=== PATIENT | female | born 1980 | race American Indian/Alaskan Native ===

== ENCOUNTER 2020-05-01 02:18 | Inpatient (IN) | payer OTHER ==
[2020-05-01 03:15] LABS: Basophils % (Auto) 0.1 % (0.0-1.8); Hematocrit 48.7 % (30.3-42.9); Hemoglobin 15.6 gm/dl (10.1-14.3); Lymphocytes % (Auto) 7.2 % (13.4-35.0); Mean Corpuscular HGB Conc 32 % (30-34); Mean Corpuscular Volume 86 fl (79-97); Monocytes # (Auto) 0.4 K/mm3 (0.0-0.8); Platelet Count 308 K/mm3 (140-440); Red Blood Count 5.63 M/mm3 (3.65-5.03); Red Cell Distribution Width 14.6 % (13.2-15.2)
[2020-05-01 03:41] LABS: Alanine Aminotransferase 11 units/L (7-56); Albumin 4.7 g/dL (3.9-5); Blood Urea Nitrogen 11 mg/dL (7-17); Calcium 10.2 mg/dL (8.4-10.2); Hemolysis Index 5
[2020-05-01 03:50] LABS: BUN/Creatinine Ratio 22
[2020-05-01] MEDS ORDERED: ONDANSETRON 4 MG/2 ML INJ IV ONE (04:02)
[2020-05-01] MEDS ORDERED: SODIUM CHLORIDE 0.9% 1000 ML 1,000 ML IV ONE ×2 (04:02→05:30)
[2020-05-01] MEDS ORDERED: HYDROmorphone 1 MG/1 ML INJ IV ONE ×2 (04:02→12:00)
--- NOTE | 2020-05-01 04:03 | Emergency Department Report ---
ED Abdominal Pain HPI - General Chief Complaint: Abdominal Pain Stated Complaint: SEVERE ABD PAIN Time Seen by Provider: 05/01/20 04:00 Source: patient Mode of arrival: Ambulatory Limitations: No Limitations - History of Present Illness Initial Comments: Patient is a 39-year-old female that presents emergency room with complaints of abdominal pain. Patient states she is having periumbilical abdominal pain that is a 10 out of 10. Patient states it started 2 days ago. Patient states the pain is worsening. Patient states the pain is unbearable. Patient states the pain is better with rest and worse with palpation and movement. Patient states she had this pain similar when checked her hernia was entrapped and it needed a hernia repair. Patient denies chest pain or shortness of breath. Patient denies nausea vomiting. Patient denies dysuria. Patient denies recent travel. Patient denies recent international travel. Patient denies exposure to the novel coronavirus. Patient denies sick contacts. Patient denies fever and chills. Patient denies cough. Patient denies diarrhea. Patient denies coming in contact with anybody with symptoms of the novel coronavirus. MD Complaint: abdominal pain -: Sudden Location: periumbilical Radiation: none Migration to: no migration Severity: severe Severity scale (0 -10): 10 Quality: stabbing Consistency: constant Improves With: rest Worsens With: movement Associated Symptoms: denies: nausea, vomiting, diarrhea - Related Data Allergies Allergy/AdvReac Type Severity Reaction Status Date / Time No Known Allergies Allergy Unverified 05/01/20 02:29 ED Review of Systems ROS: Stated complaint: SEVERE ABD PAIN Other details as noted in HPI Constitutional: denies: chills, fever Eyes: denies: eye pain, eye discharge, vision change ENT: denies: ear pain, throat pain Respiratory: denies: cough, shortness of breath, wheezing Cardiovascular: denies: chest pain, palpitations Endocrine: no symptoms reported Gastrointestinal: abdominal pain. denies: nausea, diarrhea Genitourinary: denies: urgency, dysuria, discharge Musculoskeletal: denies: back pain, joint swelling, arthralgia Skin: denies: rash, lesions Neurological: denies: headache, weakness, paresthesias Psychiatric: denies: anxiety, depression Hematological/Lymphatic: denies: easy bleeding, easy bruising ED Past Medical Hx - Past Medical History Previous Medical History?: Yes Hx Hypertension: Yes Hx Asthma: Yes - Surgical History Past Surgical History?: Yes Hx Appendectomy: Yes Additional Surgical History: Hernia repair - Family History Family history: no significant - Social History Smoking Status: Former Smoker Substance Use Type: Marijuana ED Physical Exam - General Limitations: No Limitations General appearance: alert, in no apparent distress, obese - Head Head exam: Present: atraumatic, normocephalic - Eye Eye exam: Present: normal appearance - ENT ENT exam: Present: mucous membranes moist - Neck Neck exam: Present: normal inspection - Respiratory Respiratory exam: Present: normal lung sounds bilaterally. Absent: respiratory distress - Cardiovascular Cardiovascular Exam: Present: regular rate, normal rhythm. Absent: systolic murmur, diastolic murmur, rubs, gallop - GI/Abdominal GI/Abdominal exam: Present: soft, distended, tenderness (Periumbilical tenderness.), normal bowel sounds - Extremities Exam Extremities exam: Present: normal inspection - Back Exam Back exam: Present: normal inspection - Neurological Exam Neurological exam: Present: alert, oriented X3 - Psychiatric Psychiatric exam: Present: normal affect, normal mood - Skin Skin exam: Present: warm, dry, intact, normal color. Absent: rash ED Course Vital Signs 05/01/20 05/01/20 05/01/20 02:25 04:10 04:11 Temperature 97.9 F 98.9 F Pulse Rate 76 67 Respiratory 18 12 18 Rate Blood Pressure 174/94 Blood Pressure 139/85 [Left] O2 Sat by Pulse 97 99 Oximetry 05/01/20 05/01/20 05/01/20 04:30 04:41 05:16 Temperature Pulse Rate 58 L 60 Respiratory 14 18 14 Rate Blood Pressure 118/72 142/95 Blood Pressure [Left] O2 Sat by Pulse 98 97 Oximetry - Reevaluation(s) Reevaluation #1: Patient states her pain is much better. Patient has not had any active vomiting in the ER. I discussed all results with patient. I discussed plan of care with patient. Patient agrees with plan of care and admission. Patient to be admitted to the hospitalist service. 05/01/20 05:26 - Consultations Consultation #1: General surgery consulted. 05/01/20 05:26 Consultation #2: Hospitalist consulted for admission. Hospitalist to admit patient. 05/01/20 05:26 ED Medical Decision Making - Lab Data Result diagrams: 05/01/20 02:41 05/01/20 02:41 - Radiology Data Radiology results: report reviewed CT abdomen pelvis w con INDICATION / CLINICAL INFORMATION: Pt complains of periumbilical abdominal pain x 2 days. TECHNIQUE: Axial CT imaging of abdomen and pelvis was obtained with IV contrast. Coronal and sagittal reformatted imaging obtained and reviewed. All CT scans at this location are performed using CT dose reduction for ALARA by means of automated exposure control. COMPARISON: 07/08/2007 CT abdomen/pelvis FINDINGS: CT abdomen with contrast demonstrates normal appearance of the liver, spleen, pancreas, kidneys, and adrenal glands. Gallbladder is unremarkable. No biliary dilatation. Evidence of prior abdominal wall hernia repair. CT pelvis with contrast demonstrates numerous dilated fluid-filled small bowel loops throughout the abdomen and pelvis. The distal small bowel is collapsed. The appearance is most consistent with a small bowel obstruction. Small amount of fluid is seen scattered throughout the pelvis and surrounding the liver. No free air is noted. No additional abnormal findings a re seen within the pelvis. The appendix has been surgically removed. Visualized lung bases are clear. No significant acute skeletal abnormality. Degenerative disc disease at L5-S1 is present. IMPRESSION: 1. Dilated fluid-filled small bowel is present throughout the abdomen and pelvis. Distal small bowel is collapsed. The appearance is consistent with small bowel obstruction. Small amount of free fluid is seen throughout the abdomen and pelvis but no free air. - Medical Decision Making Patient is a 39-year-old female that presents emergency room with severe abdominal pain. Patient given Zofran and Dilaudid and her abdominal pain responded well. Patient also given fluids in the ER. Patient has CT scan of the abdomen and it showed a small bowel obstruction. General surgery was consulted. Patient is not actively vomiting and does not require an NG tube. Patient will placed n.p.o. and given fluids. Patient given antibiotics for UTI. Patient's labs are essentially unremarkable except for UTI, elevated WBC. Patient admitted to the hospitalist service. - Differential Diagnosis SBO, obstruction, abdominal pain, UTI. Critical Care Time: Yes Critical care time in (mins) excluding proc time.: 35 Critical care attestation.: If time is entered above; I have spent that time in minutes in the direct care of this critically ill patient, excluding procedure time. Critical Care Time: 35 MINUTES ED Disposition Clinical Impression: SBO (small bowel obstruction) Abdominal pain Qualifiers: Abdominal location: periumbilical Qualified Code(s): R10.33 - Periumbilical pain UTI (urinary tract infection) Qualifiers: Urinary tract infection type: acute cystitis Hematuria presence: with hematuria Qualified Code(s): N30.01 - Acute cystitis with hematuria Disposition: OP ADMIT IP TO THIS HOSP Is pt being admited?: Yes Does the pt Need Aspirin: No Condition: Critical Time of Disposition: 05:27
[2020-05-01 04:44] LABS: Bilirubin,Urine NEG (Negative); Blood,Urine SM (Negative); Color,Urine Yellow (Yellow); Mucus,Urine 3+ /HPF; Urobilinogen,Urine < 2.0 mg/dL (<2.0)
--- NOTE | 2020-05-01 05:15 | Cat Scan Report ---
CT abdomen pelvis w con INDICATION / CLINICAL INFORMATION: Pt complains of periumbilical abdominal pain x 2 days. TECHNIQUE: Axial CT imaging of abdomen and pelvis was obtained with IV contrast. Coronal and sagittal reformatte d imaging obtained and reviewed. All CT scans at this location are performed using CT dose reduction for ALARA by means of automated exposure control. COMPARISON: 07/08/2007 CT abdomen/pelvis FINDINGS: CT abdomen with contrast demonstrates normal appearance of the liver, spleen, pancreas, kidneys, and adrenal glands. Gallbladder is unremarkable. No biliary dilatation. Evidence of prior abdominal wall hernia repair. CT pelvis with contrast demonstrates numerous dilated fluid-filled small bowel loops throughout the a bdomen and pelvis. The distal small bowel is collapsed. The appearance is most consistent with a smal l bowel obstruction. Small amount of fluid is seen scattered throughout the pelvis and surrounding th e liver. No free air is noted. No additional abnormal findings are seen within the pelvis. The append ix has been surgically removed. Visualized lung bases are clear. No significant acute skeletal abnormality. Degenerative disc disease at L5-S1 is present. IMPRESSION: 1. Dilated fluid-filled small bowel is present throughout the abdomen and pelvis. Distal small bowel is collapsed. The appearance is consistent with small bowel obstruction. Small amount of free fluid i s seen throughout the abdomen and pelvis but no free air. Signer Name: Leonor Vazquez MD Signed: 05/01/2020 5:10 AM Workstation Name: [id number]
[2020-05-01] MEDS ORDERED: CEFEPIME/NS 2 GM/100 ML 2 GM/100 ML BAG IV ONE (05:28)
--- NOTE | 2020-05-01 10:26 | XRay Report ---
ABDOMINAL SERIES WITH CHEST 1 VIEW HISTORY: Small bowel obstruction COMPARISON: CT abdomen and pelvis performed earlier today IMPRESSION: Single view of the chest is normal. Supine and upright views of the abdomen demonstrates scattered small air-fluid levels but no convincing dilated bowel on abdominal series. No free air is detected. Signer Name: Randall Smith Jr, MD Signed: 05/01/2020 10:22 AM Workstation Name: [id number]
[2020-05-01] MEDS: PANTOPRAZOLE 40 MG INJ IV SCH ×2 (11:18→22:18)
[2020-05-01] MEDS: D5W/0.9% NACL 1,000 ML IV SCH ×2 (11:19→18:20)
[2020-05-01] MEDS ORDERED: LIDOCAINE 2% UROJECT 10 ML JELLY UR ONE (12:37)
--- NOTE | 2020-05-01 12:37 | Consultation ---
History of Present Illness Consult date: 05/01/20 Reason for consult: abdominal pain Chief complaint: Abdominal pain - History of present illness History of present illness: 39-year-old female with a past medical history of obesity, surgical history of e mergent incarcerated ventral hernia repair at [facility] 6 years ago. She presents to the emergency room with acute onset periumbilical and epigastric abdominal pain that started yesterday. There were no inciting factors. The patient states that prior to the pain starting she had gone to the gym and performed a workout. In the parking lot of the gym, she had an episode of emesis. She states that the pain is very sharp and severe when it comes. It is localized to the periumbilical area and radiates to the upper abdomen. She states that the pain medications given to her in the emergency room did help settle her pain. She has not had any fevers or chills. No history of ulcer disease. She has had nausea and vomiting while trying to drink p.o. contrast this morning. Past History Past Medical History: other (Obesity) Past Surgical History: Other (Incarcerated ventral hernia repair) Social history: smoking Family history: no significant family history Medications and Allergies Allergies Allergy/AdvReac Type Severity Reaction Status Date / Time No Known Allergies Allergy Unverified 05/01/20 02:29 Active Meds: Active Medications Dextrose/Sodium Chloride (D5ns) 1,000 mls @ 125 mls/hr IV DIRECT [facility] Last Admin: 05/01/20 11:19 Dose: 125 mls/hr Documented by: Pantoprazole Sodium (Protonix) 40 mg IV BID [facility] Last Admin: 05/01/20 11:18 Dose: 40 mg Documented by: Review of Systems All systems: negative (10 point ROS performed and negative except for that listed in HPI) Exam Vital Signs Temp Pulse Resp BP Pulse Ox 97.9 F 76 18 174/94 97 05/01/20 02:25 05/01/20 02:25 05/01/20 02:25 05/01/20 02:25 05/01/20 02:25 Narrative exam: Gen.: Awake, alert, oriented 3. Tearful, moderate distress due to pain ENT: No scleral icterus or conjunctival pallor CV: S1, S2 present Respiratory: No audible wheezes Abdomen: Soft, nondistended, tender to palpation in the epigastrium. Well- healed surgical scar. No rebound, rigidity, guarding Extremities: No clubbing, cyanosis, edema Results - Labs 05/01/20 02:41 05/01/20 02:41 Abnormal lab results 05/01/20 05/01/20 05/01/20 Range/Units 02:41 02:41 Unknown WBC 13.8 H (4.5-11.0) K/mm3 RBC 5.63 H (3.65-5.03) M/mm3 Hgb 15.6 H (10.1-14.3) gm/dl Hct 48.7 H (30.3-42.9) % Lymph % (Auto) 7.2 L (13.4-35.0) % Lymph # 1.0 L (1.2-5.4) K/mm3 Seg Neutrophils % 89.7 H (40.0-70.0) % Seg Neutrophils # 12.4 H (1.8-7.7) K/mm3 Carbon Dioxide 21 L (22-30) mmol/L Creatinine 0.5 L (0.6-1.2) mg/dL Glucose 133 H (65-100) mg/dL Total Protein 8.6 H (6.3-8.2) g/dL Ur Specific [place] 1.033 H (1.003-1.030) Urine WBC (Auto) 14.0 H (0.0-6.0) /HPF U Epithel Cells (Auto) 31.0 H (0-13.0) /HPF Diabetes panel 05/01/20 Range/Units 02:41 Sodium 139 (137-145) mmol/L Potassium 3.9 (3.6-5.0) mmol/L Chloride 99.0 (98-107) mmol/L Carbon Dioxide 21 L (22-30) mmol/L BUN 11 (7-17) mg/dL Creatinine 0.5 L (0.6-1.2) mg/dL Glucose 133 H (65-100) mg/dL Calcium 10.2 (8.4-10.2) mg/dL AST 22 (5-40) units/L ALT 11 (7-56) units/L Alkaline Phosphatase 82 (35-129) units/L Total Protein 8.6 H (6.3-8.2) g/dL Albumin 4.7 (3.9-5) g/dL Calcium panel 05/01/20 Range/Units 02:41 Calcium 10.2 (8.4-10.2) mg/dL Albumin 4.7 (3.9-5) g/dL Pituitary panel 05/01/20 Range/Units 02:41 Sodium 139 (137-145) mmol/L Potassium 3.9 (3.6-5.0) mmol/L Chloride 99.0 (98-107) mmol/L Carbon Dioxide 21 L (22-30) mmol/L BUN 11 (7-17) mg/dL Creatinine 0.5 L (0.6-1.2) mg/dL Glucose 133 H (65-100) mg/dL Calcium 10.2 (8.4-10.2) mg/dL Adrenal panel 05/01/20 Range/Units 02:41 Sodium 139 (137-145) mmol/L Potassium 3.9 (3.6-5.0) mmol/L Chloride 99.0 (98-107) mmol/L Carbon Dioxide 21 L (22-30) mmol/L BUN 11 (7-17) mg/dL Creatinine 0.5 L (0.6-1.2) mg/dL Glucose 133 H (65-100) mg/dL Calcium 10.2 (8.4-10.2) mg/dL Total Bilirubin 0.50 (0.1-1.2) mg/dL AST 22 (5-40) units/L ALT 11 (7-56) units/L Alkaline Phosphatase 82 (35-129) units/L Total Protein 8.6 H (6.3-8.2) g/dL Albumin 4.7 (3.9-5) g/dL - Imaging CT scan - abdomen: report reviewed, image reviewed CT scan - pelvis: report reviewed, image reviewed Assessment and Plan 39-year-old female with acute onset abdominal pain, likely duodenal ulcer with contained perforation CT scan abdomen and pelvis images and report reviewed with Dr. Smith. Plan: 1. Strict n.p.o. 2. IVF 3. NGT to be inserted and kept to LIWS 4. IV abx 5. PPI BID 6. prn pain control 7. will repeat CT A/P with oral contrast to evaluate if perforation is sealed or there is extravasation of oral contrast. Further recommendations pending repeat CT scan The plan was discussed in detail with the patient. Thank you for this consultation. Please call with any questions or concerns. Evaluation and treatment of this patient was during the time of the national and state emergency arising from COVID19 coronavirus pandemic. Treatment and procedures performed meet the current and available best practice and guidelines for patient during the COVID pandemic.
--- NOTE | 2020-05-01 12:37 | History and Physical Report ---
History of Present Illness Date of examination: 05/01/20 Date of admission: 05/01/20 05:28 Chief complaint: abd pain, n/v History of present illness: Patient is a 39-year-old female that presents emergency room with complaints of abdominal pain. Patient states she is having periumbilical abdominal pain that is a 10 out of 10. Patient states it started 2 days ago. Patient states the pain is worsening. Patient states the pain is better with rest and worse with palpation and movement. Patient states she had this pain similar when checked her hernia was entrapped and it needed a hernia repair. Patient reports previous surgeries with inguinal hernia repair and appendectomy. Patient denies chest pain or shortness of breath. Patient denies nausea vomiting. Patient denies dysuria. Patient denies recent travel. Patient denies recent international travel. Patient denies exposure to the novel coronavirus. Patient denies sick contacts. Patient denies fever and chills. Patient denies cough. Patient denies diarrhea. Patient denies coming in contact with anybody with symptoms of the novel coronavirus. Past History Past Surgical History: appendectomy, Other (Inguinal hernia repair) Social history: no significant social history Family history: no significant family history Medications and Allergies Allergies Allergy/AdvReac Type Severity Reaction Status Date / Time No Known Allergies Allergy Unverified 05/01/20 02:29 Active Meds: Active Medications Dextrose/Sodium Chloride (D5ns) 1,000 mls @ 125 mls/hr IV DIRECT [facility] Last Admin: 05/01/20 11:19 Dose: 125 mls/hr Documented by: Pantoprazole Sodium (Protonix) 40 mg IV BID [facility] Last Admin: 05/01/20 11:18 Dose: 40 mg Documented by: Review of Systems All systems: negative Exam - Constitutional Vitals: Temp Pulse Resp BP Pulse Ox 98.9 F 63 14 151/104 93 05/01/20 04:10 05/01/20 07:20 05/01/20 07:20 05/01/20 07:30 05/01/20 07:30 General appearance: Present: no acute distress, well-nourished - EENT Eyes: Present: PERRL ENT: hearing intact, clear oral mucosa - Neck Neck: Present: supple, normal ROM - Respiratory Respiratory effort: normal Respiratory: bilateral: CTA - Cardiovascular Heart Sounds: Present: S1 & S2. Absent: rub, click - Extremities Extremities: pulses symmetrical, No edema Peripheral Pulses: within normal limits - Abdominal General gastrointestinal: Present: soft, non-tender, non-distended, normal bowel sounds Female genitourinary: Present: normal - Integumentary Integumentary: Present: clear, warm, dry - Musculoskeletal Musculoskeletal: gait normal, strength equal bilaterally - Psychiatric Psychiatric: appropriate mood/affect, intact judgment & insight - Neurologic Neurologic: CNII-XII intact, moves all extremities Results - Labs CBC & Chem 7: 05/01/20 02:41 05/01/20 02:41 Labs: Laboratory Last Values WBC 13.8 K/mm3 (4.5-11.0) H 05/01/20 02:41 RBC 5.63 M/mm3 (3.65-5.03) H 05/01/20 02:41 Hgb 15.6 gm/dl (10.1-14.3) H 05/01/20 02:41 Hct 48.7 % (30.3-42.9) H 05/01/20 02:41 MCV 86 fl (79-97) 05/01/20 02:41 MCH 28 pg (28-32) 05/01/20 02:41 MCHC 32 % (30-34) 05/01/20 02:41 RDW 14.6 % (13.2-15.2) 05/01/20 02:41 Plt Count 308 K/mm3 (140-440) 05/01/20 02:41 Lymph % (Auto) 7.2 % (13.4-35.0) L 05/01/20 02:41 [place] % (Auto) 3.0 % (0.0-7.3) 05/01/20 02:41 Eos % (Auto) 0.0 % (0.0-4.3) 05/01/20 02:41 Baso % (Auto) 0.1 % (0.0-1.8) 05/01/20 02:41 Lymph # 1.0 K/mm3 (1.2-5.4) L 05/01/20 02:41 [place] # 0.4 K/mm3 (0.0-0.8) 05/01/20 02:41 Eos # 0.0 K/mm3 (0.0-0.4) 05/01/20 02:41 Baso # 0.0 K/mm3 (0.0-0.1) 05/01/20 02:41 Seg Neutrophils % 89.7 % (40.0-70.0) H 05/01/20 02:41 Seg Neutrophils # 12.4 K/mm3 (1.8-7.7) H 05/01/20 02:41 Sodium 139 mmol/L (137-145) 05/01/20 02:41 Potassium 3.9 mmol/L (3.6-5.0) 05/01/20 02:41 Chloride 99.0 mmol/L (98-107) 05/01/20 02:41 Carbon Dioxide 21 mmol/L (22-30) L 05/01/20 02:41 Anion Gap 23 mmol/L 05/01/20 02:41 BUN 11 mg/dL (7-17) 05/01/20 02:41 Creatinine 0.5 mg/dL (0.6-1.2) L 05/01/20 02:41 Estimated GFR > 60 ml/min 05/01/20 02:41 BUN/Creatinine Ratio 22 % 05/01/20 02:41 Glucose 133 mg/dL (65-100) H 05/01/20 02:41 Calcium 10.2 mg/dL (8.4-10.2) 05/01/20 02:41 Total Bilirubin 0.50 mg/dL (0.1-1.2) 05/01/20 02:41 AST 22 units/L (5-40) 05/01/20 02:41 ALT 11 units/L (7-56) 05/01/20 02:41 Alkaline Phosphatase 82 units/L (35-129) 05/01/20 02:41 Total Protein 8.6 g/dL (6.3-8.2) H 05/01/20 02:41 Albumin 4.7 g/dL (3.9-5) 05/01/20 02:41 Albumin/Globulin Ratio 1.2 % 05/01/20 02:41 HCG, Qual Negative (Negative) 05/01/20 02:41 Urine Color Yellow (Yellow) 05/01/20 Unknown Urine Turbidity Slightly-cloudy (Clear) 05/01/20 Unknown Urine pH 6.0 (5.0-7.0) 05/01/20 Unknown Ur Specific [place] 1.033 (1.003-1.030) H 05/01/20 Unknown Urine Protein 100 mg/dl mg/dL (Negative) 05/01/20 Unknown Urine Glucose (UA) Neg mg/dL (Negative) 05/01/20 Unknown Urine Ketones 80 mg/dL (Negative) 05/01/20 Unknown Urine Blood Sm (Negative) 05/01/20 Unknown Urine Nitrite Neg (Negative) 05/01/20 Unknown Urine Bilirubin Neg (Negative) 05/01/20 Unknown Urine Urobilinogen < 2.0 mg/dL (<2.0) 05/01/20 Unknown Ur Leukocyte Esterase Sm (Negative) 05/01/20 Unknown Urine WBC (Auto) 14.0 /HPF (0.0-6.0) H 05/01/20 Unknown Urine RBC (Auto) 52.0 /HPF (0.0-6.0) 05/01/20 Unknown U Epithel Cells (Auto) 31.0 /HPF (0-13.0) H 05/01/20 Unknown Urine Mucus 3+ /HPF 05/01/20 Unknown Ybarra/IV: Voiding Method Toilet IV Catheter Type [Right INT / Saline Lock Forearm] Assessment and Plan Assessment and plan: Small bowel obstruction. Surgery consultation pending. CT scan of the abdomen revealed SBO with dilated fluid-filled small bowel present throughout the abdomen and pelvis. Distal small bowel is collapsed. Etiology likely secondary to previous abdominal surgeries with LAW. Continue supportive care with IV fluid hydration. Consider NG tube placement to low intermittent suction if vomiting recurs. Patient currently refusing. Hypertension. Patient reports no history of hypertension. Etiology may be secondary to pain. Adequate pain control. Hydralazine PRN. History of inguinal hernia repair. History of appendectomy.
[2020-05-01] MEDS ORDERED: hydrALAZINE 20 MG/1 ML INJ IV PRN (12:39)
[2020-05-01] MEDS ORDERED: LIDOCAINE VISCOUS 2% 15 ML ORAL LIQD MM NR (12:45)
--- NOTE | 2020-05-01 14:48 | Cat Scan Report ---
CT ABDOMEN AND PELVIS WITHOUT CONTRAST HISTORY: perforated duodenal ulcer. COMPARISON: Earlier today at 0044 hours TECHNIQUE: Helical CT images of the abdomen and pelvis were obtained without administration of intrav enous contrast. Sagittal and coronal reformatted images were reviewed. All CT scans at this location are performed using CT dose reduction for ALARA by means of automated exposure control. FINDINGS: Abdomen/pelvis: Oral contrast is present in the stomach and most of the small bowel. There is no con vincing extravasation of oral contrast into the suspected duodenal ulcer. There is persistent small b owel gas in the retroperitoneum and mild free fluid in the abdomen. No free air is appreciated. No convincing small bowel obstruction pattern on follow-up CT. The liver, biliary system, pancreas, spleen, kidneys, adrenal glands, aorta, and pelvic viscera remai n unremarkable otherwise. Lungs/bones: No significant abnormality. IMPRESSION: Duodenal ulcer is still suspected but no extravasation of oral contrast is demonstrated on CT. See ab echevarria. Signer Name: Randall Smith Jr, MD Signed: 05/01/2020 2:44 PM Workstation Name: [id number]
[2020-05-01] MEDS ORDERED: PHENOL 1.4% 177 ML BOTTLE MM PRN (15:08)
[2020-05-01] MEDS: ONDANSETRON 4 MG/2 ML INJ IV PRN (15:08)
[2020-05-01] MEDS: HYDROmorphone 1 MG/1 ML INJ IV PRN ×2 (15:17→20:01)
--- NOTE | 2020-05-01 15:21 | Event Note ---
Date: 05/01/20 Patient reassessed multiple times after initial consultation. She was able to tolerate the oral contrast after IV pain medication. She was sitting in bed comfortably without any abdominal pain. Patient sent for CT scan abdomen and pelvis with oral contrast to reevaluate the area of the duodenum. NG tube placement held until CT scan was completed. Spoke with patient's mother Michelle at her request, in the presence of the patient and explained the Ct scan findings and plan. Patient seen after she returned from CAT scan. Patient without any acute complaints. CT scan images and report reviewed. No evidence of oral contrast extravasation, area of the duodenal ulcer once again seen. Oral contrast present in the distal small bowel without evidence of obstruction. A 16 [place] NG tube was placed through the patient's right nare on the first attempt. She tolerated this but did have some retching. NG tube placed to suction with clear fluid mixed with some pink gastric fluid suctioned out, approximately 500 cc. The tube was secured to the nose with silk tape. Plan: 1. Continue n.p.o. except for ice chips for comfort 2. IV fluids 3. prn pain and nausea control 4. PPI BID 5. IV abx 6. maintain NGT to LIWS - will help decompress stomach and duodenum to decrease pressure on area of ulcer 7. No acute surgical intervention at this time. Further recs pending clinical course Thank you, please call with questions.
[2020-05-01] MEDS: PIPERACIL/TAZOBACTA 4.5/NS 100 4.5 GM/100 ML VIAL IV SCH ×3 (15:23→22:24)
[2020-05-02] MEDS: HYDROmorphone 1 MG/1 ML INJ IV PRN ×8 (00:19→22:01)
[2020-05-02] MEDS: PIPERACIL/TAZOBACTA 4.5/NS 100 4.5 GM/100 ML VIAL IV SCH ×3 (06:14→22:01)
[2020-05-02] MEDS: D5W/0.9% NACL 1,000 ML IV SCH (06:21)
[2020-05-02 06:30] LABS: Basophils % (Auto) 0.2 % (0.0-1.8); Eosinophils % (Auto) 0.5 % (0.0-4.3); Hemoglobin 12.8 gm/dl (10.1-14.3); Lymphocytes # (Auto) 1.4 K/mm3 (1.2-5.4); Lymphocytes % (Auto) 19.2 % (13.4-35.0); Mean Corpuscular HGB Conc 32 % (30-34); Mean Corpuscular Volume 86 fl (79-97); Monocytes # (Auto) 0.6 K/mm3 (0.0-0.8); Monocytes % (Auto) 8.5 % (0.0-7.3); Platelet Count 229 K/mm3 (140-440); Red Blood Count 4.63 M/mm3 (3.65-5.03); Red Cell Distribution Width 14.4 % (13.2-15.2)
[2020-05-02 06:43] LABS: Blood Urea Nitrogen 9 mg/dL (7-17); Calcium 8.2 mg/dL (8.4-10.2); Hemolysis Index 12
[2020-05-02 06:47] LABS: BUN/Creatinine Ratio 13
[2020-05-02] MEDS: PANTOPRAZOLE 40 MG INJ IV SCH ×2 (09:44→22:01)
--- NOTE | 2020-05-02 10:33 | Progress Note ---
Assessment and Plan Assessment and plan: Small bowel obstruction. Surgery consultation pending. CT scan of the abdomen revealed SBO with dilated fluid-filled small bowel present throughout the abdomen and pelvis. Distal small bowel is collapsed. Etiology likely secondary to previous abdominal surgeries with LAW. Continue supportive care with IV fluid hydration. Consider NG tube placement to low intermittent suction if vomiting recurs. Patient currently refusing. Hypertension. Patient reports no history of hypertension. Etiology may be secondary to pain. Adequate pain control. Hydralazine PRN. History of inguinal hernia repair. History of appendectomy. 05/02/2020. Continue n.p.o. except for ice chips and IV fluid hydration. Antiemetics and medications for pain control. PPI twice daily. Continue IV antibiotics. Continue NGT to LIWS. Follow-up KUB. Surgery following. History Interval history: Patient states her abdominal pain is better. Hospitalist Physical - Constitutional Vitals: Temp Pulse Resp BP Pulse Ox 98.2 F 70 20 103/71 91 05/02/20 04:34 05/02/20 04:34 05/02/20 04:34 05/02/20 04:34 05/02/20 04:34 General appearance: Present: no acute distress, well-nourished - EENT Eyes: Present: PERRL, EOM intact ENT: hearing intact, clear oral mucosa, dentition normal - Neck Neck: Present: supple, normal ROM - Respiratory Respiratory effort: normal Respiratory: bilateral: CTA - Cardiovascular Rhythm: regular Heart Sounds: Present: S1 & S2. Absent: gallop, rub - Extremities Extremities: no ischemia, No edema, Full ROM - Abdominal General gastrointestinal: soft, non-tender, non-distended, normal bowel sounds - Integumentary Integumentary: Present: clear, warm, dry - Neurologic Neurologic: CNII-XII intact, moves all extremities Results - Labs CBC & Chem 7: 05/02/20 05:25 05/02/20 05:25 Labs: Laboratory Last Values WBC 7.4 K/mm3 (4.5-11.0) 05/02/20 05:25 RBC 4.63 M/mm3 (3.65-5.03) 05/02/20 05:25 Hgb 12.8 gm/dl (10.1-14.3) 05/02/20 05:25 Hct 40.0 % (30.3-42.9) D 05/02/20 05:25 MCV 86 fl (79-97) 05/02/20 05:25 MCH 28 pg (28-32) 05/02/20 05:25 MCHC 32 % (30-34) 05/02/20 05:25 RDW 14.4 % (13.2-15.2) 05/02/20 05:25 Plt Count 229 K/mm3 (140-440) 05/02/20 05:25 Lymph % (Auto) 19.2 % (13.4-35.0) 05/02/20 05:25 [place] % (Auto) 8.5 % (0.0-7.3) H 05/02/20 05:25 Eos % (Auto) 0.5 % (0.0-4.3) 05/02/20 05:25 Baso % (Auto) 0.2 % (0.0-1.8) 05/02/20 05:25 Lymph # 1.4 K/mm3 (1.2-5.4) 05/02/20 05:25 [place] # 0.6 K/mm3 (0.0-0.8) 05/02/20 05:25 Eos # 0.0 K/mm3 (0.0-0.4) 05/02/20 05:25 Baso # 0.0 K/mm3 (0.0-0.1) 05/02/20 05:25 Seg Neutrophils % 71.6 % (40.0-70.0) H 05/02/20 05:25 Seg Neutrophils # 5.3 K/mm3 (1.8-7.7) 05/02/20 05:25 Sodium 140 mmol/L (137-145) 05/02/20 05:25 Potassium 3.1 mmol/L (3.6-5.0) L D 05/02/20 05:25 Chloride 102.3 mmol/L (98-107) 05/02/20 05:25 Carbon Dioxide 25 mmol/L (22-30) 05/02/20 05:25 Anion Gap 16 mmol/L 05/02/20 05:25 BUN 9 mg/dL (7-17) 05/02/20 05:25 Creatinine 0.7 mg/dL (0.6-1.2) 05/02/20 05:25 Estimated GFR > 60 ml/min 05/02/20 05:25 BUN/Creatinine Ratio 13 % 05/02/20 05:25 Glucose 132 mg/dL (65-100) H 05/02/20 05:25 Calcium 8.2 mg/dL (8.4-10.2) L D 05/02/20 05:25 Total Bilirubin 0.50 mg/dL (0.1-1.2) 05/01/20 02:41 AST 22 units/L (5-40) 05/01/20 02:41 ALT 11 units/L (7-56) 05/01/20 02:41 Alkaline Phosphatase 82 units/L (35-129) 05/01/20 02:41 Total Protein 8.6 g/dL (6.3-8.2) H 05/01/20 02:41 Albumin 4.7 g/dL (3.9-5) 05/01/20 02:41 Albumin/Globulin Ratio 1.2 % 05/01/20 02:41 HCG, Qual Negative (Negative) 05/01/20 02:41 Urine Color Yellow (Yellow) 05/01/20 Unknown Urine Turbidity Slightly-cloudy (Clear) 05/01/20 Unknown Urine pH 6.0 (5.0-7.0) 05/01/20 Unknown Ur Specific [place] 1.033 (1.003-1.030) H 05/01/20 Unknown Urine Protein 100 mg/dl mg/dL (Negative) 05/01/20 Unknown Urine Glucose (UA) Neg mg/dL (Negative) 05/01/20 Unknown Urine Ketones 80 mg/dL (Negative) 05/01/20 Unknown Urine Blood Sm (Negative) 05/01/20 Unknown Urine Nitrite Neg (Negative) 05/01/20 Unknown Urine Bilirubin Neg (Negative) 05/01/20 Unknown Urine Urobilinogen < 2.0 mg/dL (<2.0) 05/01/20 Unknown Ur Leukocyte Esterase Sm (Negative) 05/01/20 Unknown Urine WBC (Auto) 14.0 /HPF (0.0-6.0) H 05/01/20 Unknown Urine RBC (Auto) 52.0 /HPF (0.0-6.0) 05/01/20 Unknown U Epithel Cells (Auto) 31.0 /HPF (0-13.0) H 05/01/20 Unknown Urine Mucus 3+ /HPF 05/01/20 Unknown Microbiology: Microbiology 05/01/20 Unknown Urine,Clean Catch Urine Culture - Preliminary Ybarra/IV: Voiding Method Toilet IV Catheter Type [Right INT / Saline Lock Forearm] Active Medications - Current Medications Current Medications: Generic Name Dose Route Start Last Admin Trade Name Freq PRN Reason Stop Dose Admin Hydralazine HCl 20 mg 05/01/20 12:39 Apresoline IV Q4HR PRN Blood Pressure Hydromorphone HCl 1 mg 05/01/20 12:39 05/02/20 09:45 Dilaudid IV 1 mg Q3H PRN Administration Pain , Severe (7-10) Dextrose/Sodium Chloride 1,000 mls @ 125 mls/hr 05/01/20 09:00 05/02/20 06:21 D5ns IV 125 mls/hr DIRECT HEIDI Administration Piperacillin Sod/Tazobactam Sod 4.5 gm in 100 mls @ 200 mls/hr 05/01/20 12:39 05/02/20 06:14 Zosyn/Ns 4.5gm/100ml IV 200 mls/hr Q8HR HEIDI Administration Protocol Ondansetron HCl 4 mg 05/01/20 12:40 05/01/20 15:08 Zofran IV 4 mg Q8H PRN Administration Nausea And Vomiting Pantoprazole Sodium 40 mg 05/01/20 11:00 05/02/20 09:44 Protonix IV 40 mg BID HEIDI Administration Phenol 1 spray 05/01/20 15:08 Chloraseptic MM PRN PRN Sore Throat
--- NOTE | 2020-05-02 12:23 | Progress Note ---
Assessment and Plan 39-year-old female with acute onset abdominal pain, likely duodenal ulcer with contained perforation Repeat CT scan abdomen and pelvis showed no extravasation of oral contrast. Patient stable. Her pain is much improved and she is hemodynamically stable. Plan: 1. N.p.o. except ice chips 2. Continue IVF 3. Continue NGT to LIWS 4. IV abx 5. PPI BID 6. prn pain control 7. continue NGT through the weekend to help decompress the stomach and duodenum. Plan to perform upper GI on Monday. If upper GI is normal, will remove NGT and start patient on liquid diet. The plan was discussed in detail with the patient. Please call with any questions or concerns. Evaluation and treatment of this patient was during the time of the national and state emergency arising from COVID19 coronavirus pandemic. Treatment and procedu res performed meet the current and available best practice and guidelines for patient during the COVID pandemic. Subjective Date of service: 05/02/20 Narrative: Patient seen and examined. She complains of some soreness in her upper abdomen but much improved compared to the pain she was having yesterday. No nausea or v omiting. No chest pain or shortness of breath. Afebrile. Objective Vital Signs - 12hr 05/02/20 04:34 Temperature 98.2 F Pulse Rate 70 Respiratory 20 Rate Blood Pressure 103/71 O2 Sat by Pulse 91 Oximetry - General physical appearance Narrative Exam: Gen.: Awake, alert, oriented 3. No apparent distress ENT: NG tube in place with light bilious drainage. Trachea midline. No lymphadenopathy. No scleral icterus or conjunctival pallor CV: S1, S2 present Respiratory: No audible wheezes Abdomen: Soft, nondistended, mild tenderness to palpation of the epigastrium. No rebound, rigidity, guarding Extremities: No clubbing, cyanosis, edema - Labs 05/02/20 05:25 05/02/20 05:25 Diabetes panel 05/02/20 Range/Units 05:25 Sodium 140 (137-145) mmol/L Potassium 3.1 L D (3.6-5.0) mmol/L Chloride 102.3 (98-107) mmol/L Carbon Dioxide 25 (22-30) mmol/L BUN 9 (7-17) mg/dL Creatinine 0.7 (0.6-1.2) mg/dL Glucose 132 H (65-100) mg/dL Calcium 8.2 L D (8.4-10.2) mg/dL Calcium panel 05/02/20 Range/Units 05:25 Calcium 8.2 L D (8.4-10.2) mg/dL Pituitary panel 05/02/20 Range/Units 05:25 Sodium 140 (137-145) mmol/L Potassium 3.1 L D (3.6-5.0) mmol/L Chloride 102.3 (98-107) mmol/L Carbon Dioxide 25 (22-30) mmol/L BUN 9 (7-17) mg/dL Creatinine 0.7 (0.6-1.2) mg/dL Glucose 132 H (65-100) mg/dL Calcium 8.2 L D (8.4-10.2) mg/dL Adrenal panel 05/02/20 Range/Units 05:25 Sodium 140 (137-145) mmol/L Potassium 3.1 L D (3.6-5.0) mmol/L Chloride 102.3 (98-107) mmol/L Carbon Dioxide 25 (22-30) mmol/L BUN 9 (7-17) mg/dL Creatinine 0.7 (0.6-1.2) mg/dL Glucose 132 H (65-100) mg/dL Calcium 8.2 L D (8.4-10.2) mg/dL
[2020-05-02] MEDS: D5W/0.45% NACL/KCL 20 MEQ 20 MEQ/1,000 ML BAG IV SCH (13:17)
[2020-05-02] MEDS: POTASSIUM CHLORIDE 10 MEQ 10 MEQ/100 ML BAG IV SCH ×4 (14:11→18:48)
[2020-05-02] MEDS: ONDANSETRON 4 MG/2 ML INJ IV PRN (18:51)
[2020-05-03] MEDS: HYDROmorphone 1 MG/1 ML INJ IV PRN ×7 (01:00→21:59)
[2020-05-03 05:26] LABS: Basophils % (Auto) 0.4 % (0.0-1.8); Eosinophils # (Auto) 0.1 K/mm3 (0.0-0.4); Eosinophils % (Auto) 0.7 % (0.0-4.3); Hematocrit 39.3 % (30.3-42.9); Hemoglobin 12.7 gm/dl (10.1-14.3); Lymphocytes # (Auto) 3.4 K/mm3 (1.2-5.4); Lymphocytes % (Auto) 37.5 % (13.4-35.0); Mean Corpuscular HGB Conc 32 % (30-34); Mean Corpuscular Volume 88 fl (79-97); Monocytes # (Auto) 0.6 K/mm3 (0.0-0.8); Monocytes % (Auto) 6.5 % (0.0-7.3); Platelet Count 229 K/mm3 (140-440); Red Blood Count 4.49 M/mm3 (3.65-5.03); Red Cell Distribution Width 14.3 % (13.2-15.2)
[2020-05-03] MEDS: PIPERACIL/TAZOBACTA 4.5/NS 100 4.5 GM/100 ML VIAL IV SCH ×3 (05:38→21:59)
[2020-05-03 05:41] LABS: Blood Urea Nitrogen 8 mg/dL (7-17); Hemolysis Index 26
[2020-05-03 05:49] LABS: BUN/Creatinine Ratio 11
--- NOTE | 2020-05-03 09:49 | Progress Note ---
Assessment and Plan Assessment and plan: Small bowel obstruction. Surgery consultation pending. CT scan of the abdomen revealed SBO with dilated fluid-filled small bowel present throughout the abdomen and pelvis. Distal small bowel is collapsed. Etiology likely secondary to previous abdominal surgeries with LAW. Continue supportive care with IV fluid hydration. Consider NG tube placement to low intermittent suction if vomiting recurs. Patient currently refusing. Hypertension. Patient reports no history of hypertension. Etiology may be secondary to pain. Adequate pain control. Hydralazine PRN. History of inguinal hernia repair. History of appendectomy. 05/02/2020. Continue n.p.o. except for ice chips and IV fluid hydration. Antiemetics and medications for pain control. PPI twice daily. Continue IV antibiotics. Continue NGT to LIWS. Follow-up KUB. Surgery following. 05/03/2020. Continue PPI twice daily. Continue IV fluid hydration and IV antibiotics. Continue NGT through the weekend to help decompress the stomach and duodenum. Plan to perform upper GI on Monday. If upper GI is normal, will remove NGT and start patient on liquid diet. Surgery following. History Interval history: Patient states her abdominal pain is better. Hospitalist Physical - Constitutional Vitals: Temp Pulse Resp BP Pulse Ox 98.1 F 51 L 18 134/84 95 05/03/20 03:33 05/03/20 03:33 05/03/20 03:33 05/03/20 03:33 05/03/20 03:33 General appearance: Present: no acute distress, well-nourished - EENT Eyes: Present: PERRL, EOM intact ENT: hearing intact, clear oral mucosa, dentition normal - Neck Neck: Present: supple, normal ROM - Respiratory Respiratory effort: normal Respiratory: bilateral: CTA - Cardiovascular Rhythm: regular Heart Sounds: Present: S1 & S2. Absent: gallop, rub - Extremities Extremities: no ischemia, No edema, Full ROM - Abdominal General gastrointestinal: soft, non-tender, non-distended, normal bowel sounds - Integumentary Integumentary: Present: clear, warm, dry - Neurologic Neurologic: CNII-XII intact, moves all extremities Results - Labs CBC & Chem 7: 05/03/20 04:22 05/03/20 04:22 Labs: Laboratory Last Values WBC 9.1 K/mm3 (4.5-11.0) 05/03/20 04:22 RBC 4.49 M/mm3 (3.65-5.03) 05/03/20 04:22 Hgb 12.7 gm/dl (10.1-14.3) 05/03/20 04:22 Hct 39.3 % (30.3-42.9) 05/03/20 04:22 MCV 88 fl (79-97) 05/03/20 04:22 MCH 28 pg (28-32) 05/03/20 04:22 MCHC 32 % (30-34) 05/03/20 04:22 RDW 14.3 % (13.2-15.2) 05/03/20 04:22 Plt Count 229 K/mm3 (140-440) 05/03/20 04:22 Lymph % (Auto) 37.5 % (13.4-35.0) H 05/03/20 04:22 [place] % (Auto) 6.5 % (0.0-7.3) 05/03/20 04:22 Eos % (Auto) 0.7 % (0.0-4.3) 05/03/20 04:22 Baso % (Auto) 0.4 % (0.0-1.8) 05/03/20 04:22 Lymph # 3.4 K/mm3 (1.2-5.4) 05/03/20 04:22 [place] # 0.6 K/mm3 (0.0-0.8) 05/03/20 04:22 Eos # 0.1 K/mm3 (0.0-0.4) 05/03/20 04:22 Baso # 0.0 K/mm3 (0.0-0.1) 05/03/20 04:22 Seg Neutrophils % 54.9 % (40.0-70.0) 05/03/20 04:22 Seg Neutrophils # 5.0 K/mm3 (1.8-7.7) 05/03/20 04:22 Sodium 142 mmol/L (137-145) 05/03/20 04:22 Potassium 3.7 mmol/L (3.6-5.0) 05/03/20 04:22 Chloride 102.4 mmol/L (98-107) 05/03/20 04:22 Carbon Dioxide 28 mmol/L (22-30) 05/03/20 04:22 Anion Gap 15 mmol/L 05/03/20 04:22 BUN 8 mg/dL (7-17) 05/03/20 04:22 Creatinine 0.7 mg/dL (0.6-1.2) 05/03/20 04:22 Estimated GFR > 60 ml/min 05/03/20 04:22 BUN/Creatinine Ratio 11 % 05/03/20 04:22 Glucose 96 mg/dL (65-100) 05/03/20 04:22 Calcium 9.0 mg/dL (8.4-10.2) 05/03/20 04:22 Total Bilirubin 0.50 mg/dL (0.1-1.2) 05/01/20 02:41 AST 22 units/L (5-40) 05/01/20 02:41 ALT 11 units/L (7-56) 05/01/20 02:41 Alkaline Phosphatase 82 units/L (35-129) 05/01/20 02:41 Total Protein 8.6 g/dL (6.3-8.2) H 05/01/20 02:41 Albumin 4.7 g/dL (3.9-5) 05/01/20 02:41 Albumin/Globulin Ratio 1.2 % 05/01/20 02:41 HCG, Qual Negative (Negative) 05/01/20 02:41 Urine Color Yellow (Yellow) 05/01/20 Unknown Urine Turbidity Slightly-cloudy (Clear) 05/01/20 Unknown Urine pH 6.0 (5.0-7.0) 05/01/20 Unknown Ur Specific [place] 1.033 (1.003-1.030) H 05/01/20 Unknown Urine Protein 100 mg/dl mg/dL (Negative) 05/01/20 Unknown Urine Glucose (UA) Neg mg/dL (Negative) 05/01/20 Unknown Urine Ketones 80 mg/dL (Negative) 05/01/20 Unknown Urine Blood Sm (Negative) 05/01/20 Unknown Urine Nitrite Neg (Negative) 05/01/20 Unknown Urine Bilirubin Neg (Negative) 05/01/20 Unknown Urine Urobilinogen < 2.0 mg/dL (<2.0) 05/01/20 Unknown Ur Leukocyte Esterase Sm (Negative) 05/01/20 Unknown Urine WBC (Auto) 14.0 /HPF (0.0-6.0) H 05/01/20 Unknown Urine RBC (Auto) 52.0 /HPF (0.0-6.0) 05/01/20 Unknown U Epithel Cells (Auto) 31.0 /HPF (0-13.0) H 05/01/20 Unknown Urine Mucus 3+ /HPF 05/01/20 Unknown Microbiology: Microbiology 05/01/20 Unknown Urine,Clean Catch Urine Culture - Final Ybarra/IV: Voiding Method Toilet IV Catheter Type [Left Upper Peripheral IV arm] IV Catheter Type [Right INT / Saline Lock Forearm] Active Medications - Current Medications Current Medications: Generic Name Dose Route Start Last Admin Trade Name Freq PRN Reason Stop Dose Admin Hydralazine HCl 20 mg 05/01/20 12:39 Apresoline IV Q4HR PRN Blood Pressure Hydromorphone HCl 1 mg 05/01/20 12:39 05/03/20 03:59 Dilaudid IV 1 mg Q3H PRN Administration Pain , Severe (7-10) Piperacillin Sod/Tazobactam Sod 4.5 gm in 100 mls @ 200 mls/hr 05/01/20 12:39 05/03/20 05:38 Zosyn/Ns 4.5gm/100ml IV 200 mls/hr Q8HR HEIDI Administration Protocol Potassium Chloride/Dextrose/Sod Cl 20 meq in 1,000 mls @ 75 mls/hr 05/02/20 13:00 05/02/20 13:17 D5w/0.45% Nacl/Kcl 20 Meq IV 75 mls/hr DIRECT HEIDI Administration Ondansetron HCl 4 mg 05/01/20 12:40 05/02/20 18:51 Zofran IV 4 mg Q8H PRN Administration Nausea And Vomiting Pantoprazole Sodium 40 mg 05/01/20 11:00 05/02/20 22:01 Protonix IV 40 mg BID HEIDI Administration Phenol 1 spray 05/01/20 15:08 Chloraseptic MM PRN PRN Sore Throat
[2020-05-03] MEDS: PANTOPRAZOLE 40 MG INJ IV SCH ×2 (10:11→21:59)
--- NOTE | 2020-05-03 10:17 | XRay Report ---
ABDOMEN 1 VIEW INDICATION / CLINICAL INFORMATION: SBO. COMPARISON: 05/01/2020 FINDINGS: TUBES / LINES: Nasogastric tube projects over left upper quadrant. BOWEL GAS PATTERN: No significant abnormality. FREE AIR / EXTRALUMINAL GAS: Possible Rigler's sign in the right upper quadrant indicating small amou nt of free air. ADDITIONAL FINDINGS: No significant additional findings. IMPRESSION: 1. Possible small amount of right upper quadrant free air. 2. Nasogastric tube projects over the left upper quadrant. CRITICAL RESULT: Time of Discovery (DIRECTOR OF PRODUCT DESIGN/CDT): 0900 Time of Communication (DIRECTOR OF PRODUCT DESIGN/CDT): 09 Licensed Practitioner Receiving Report: Rossy Cano RN Read-Back Performed: Yes. Signer Name: Juan Broussard MD Signed: 05/03/2020 10:12 AM Workstation Name: [id number]
[2020-05-03] MEDS: D5W/0.45% NACL/KCL 20 MEQ 20 MEQ/1,000 ML BAG IV SCH ×2 (13:11→22:12)
--- NOTE | 2020-05-03 14:28 | Progress Note ---
Assessment and Plan 39-year-old female with acute onset abdominal pain, likely duodenal ulcer with contained perforation Repeat CT scan abdomen and pelvis on 05/01 showed no extravasation of oral contrast. Patient stable. Denies pain and is HD stable. KUB today showed NGT in proper positioning and possible free air in RUQ per radiology read - area correlates to free air seen on CT scan Plan: 1. N.p.o. except ice chips 2. Continue IVF 3. Continue NGT to LIWS 4. IV abx - will transition to PO x 10 days total upon dc 5. PPI BID - will transition to PPI PO BID upon dc 6. prn pain control 7. UGI in am - if no leak, will dc NGT and start clear liquid diet. If pt tolerates clears, will proceed with dc home. 8. Will need outpatient GI referral for EGD in 6-8 weeks The plan was discussed in detail with the patient. Please call with any questions or concerns. Evaluation and treatment of this patient was during the time of the national and state emergency arising from COVID19 coronavirus pandemic. Treatment and procedures performed meet the current and available best practice and guidelines for patient during the COVID pandemic. Subjective Date of service: 05/03/20 Narrative: Pt seen and examined. c/o difficulty with the NGT overnight and this am. Now that it has been re-taped, she states it feels better and more secure with no discomfort. No abdominal pain. No n/v. Taking in ice chips PO. No f/c. Objective Vital Signs - 12hr 05/03/20 03:33 Temperature 98.1 F Pulse Rate 51 L Respiratory 18 Rate Blood Pressure 134/84 O2 Sat by Pulse 95 Oximetry - General physical appearance Narrative Exam: Gen: AAOx3. NAD ENT: NGT - light bilious drainage CV: s1, S2+ Resp; even and unlabored Abd: soft, NT, ND, no r/r/g Ext: no c/c/e - Labs 05/03/20 04:22 05/03/20 04:22 Diabetes panel 05/03/20 Range/Units 04:22 Sodium 142 (137-145) mmol/L Potassium 3.7 (3.6-5.0) mmol/L Chloride 102.4 (98-107) mmol/L Carbon Dioxide 28 (22-30) mmol/L BUN 8 (7-17) mg/dL Creatinine 0.7 (0.6-1.2) mg/dL Glucose 96 (65-100) mg/dL Calcium 9.0 (8.4-10.2) mg/dL Calcium panel 05/03/20 Range/Units 04:22 Calcium 9.0 (8.4-10.2) mg/dL Pituitary panel 05/03/20 Range/Units 04:22 Sodium 142 (137-145) mmol/L Potassium 3.7 (3.6-5.0) mmol/L Chloride 102.4 (98-107) mmol/L Carbon Dioxide 28 (22-30) mmol/L BUN 8 (7-17) mg/dL Creatinine 0.7 (0.6-1.2) mg/dL Glucose 96 (65-100) mg/dL Calcium 9.0 (8.4-10.2) mg/dL Adrenal panel 05/03/20 Range/Units 04:22 Sodium 142 (137-145) mmol/L Potassium 3.7 (3.6-5.0) mmol/L Chloride 102.4 (98-107) mmol/L Carbon Dioxide 28 (22-30) mmol/L BUN 8 (7-17) mg/dL Creatinine 0.7 (0.6-1.2) mg/dL Glucose 96 (65-100) mg/dL Calcium 9.0 (8.4-10.2) mg/dL
[2020-05-04] MEDS: HYDROmorphone 1 MG/1 ML INJ IV PRN ×8 (00:58→23:30)
[2020-05-04] MEDS: PIPERACIL/TAZOBACTA 4.5/NS 100 4.5 GM/100 ML VIAL IV SCH ×3 (06:16→22:32)
[2020-05-04 08:07] LABS: Basophils # (Auto) 0.1 K/mm3 (0.0-0.1); Basophils % (Auto) 0.8 % (0.0-1.8); Eosinophils # (Auto) 0.1 K/mm3 (0.0-0.4); Eosinophils % (Auto) 1.3 % (0.0-4.3); Hematocrit 34.9 % (30.3-42.9); Hemoglobin 11.4 gm/dl (10.1-14.3); Lymphocytes # (Auto) 2.2 K/mm3 (1.2-5.4); Lymphocytes % (Auto) 25.9 % (13.4-35.0); Mean Corpuscular HGB Conc 33 % (30-34); Mean Corpuscular Volume 87 fl (79-97); Monocytes # (Auto) 0.5 K/mm3 (0.0-0.8); Monocytes % (Auto) 6.1 % (0.0-7.3); Platelet Count 213 K/mm3 (140-440); Red Cell Distribution Width 14.4 % (13.2-15.2)
[2020-05-04 08:22] LABS: Blood Urea Nitrogen 7 mg/dL (7-17); Hemolysis Index 0
[2020-05-04 08:27] LABS: BUN/Creatinine Ratio 10
--- NOTE | 2020-05-04 10:11 | Progress Note ---
Assessment and Plan Assessment and plan: Duodenal ulcer with contained perforation. Surgery following. Repeat CT scan revealed duodenal ulcer with no extravasation of oral contrast. Hypertension. Patient reports no history of hypertension. Etiology may be secondary to pain. Adequate pain control. Hydralazine PRN. History of inguinal hernia repair. History of appendectomy. UTI. 05/02/2020. Continue n.p.o. except for ice chips and IV fluid hydration. Antiemetics and medications for pain control. PPI twice daily. Continue IV ant ibiotics. Continue NGT to LIWS. Follow-up KUB. Surgery following. 05/03/2020. Continue PPI twice daily. Continue IV fluid hydration and IV antibiotics. Continue NGT through the weekend to help decompress the stomach and duodenum. Plan to perform upper GI on Monday. If upper GI is normal, will remove NGT and start patient on liquid diet. Surgery following. 05/04/2020. Patient to undergo upper GI this morning. If there is no evidence of a leak, we will discontinue NG tube and start clear liquid diet. If patient tolerates diet, we will advance and consider discharge home. Change antibiotics from Zosyn to Levaquin 500 mg daily for UTI if upper GI negative. History Interval history: Patient states her abdominal pain is better. Hospitalist Physical - Constitutional Vitals: Temp Pulse Resp BP Pulse Ox 98.2 F 71 18 118/87 94 05/04/20 07:23 05/04/20 07:23 05/04/20 07:23 05/04/20 07:23 05/04/20 07:23 General appearance: Present: no acute distress, well-nourished - EENT Eyes: Present: PERRL, EOM intact ENT: hearing intact, clear oral mucosa, dentition normal - Neck Neck: Present: supple, normal ROM - Respiratory Respiratory effort: normal Respiratory: bilateral: CTA - Cardiovascular Rhythm: regular Heart Sounds: Present: S1 & S2. Absent: gallop, rub - Extremities Extremities: no ischemia, No edema, Full ROM - Abdominal General gastrointestinal: soft, non-tender, non-distended, normal bowel sounds - Integumentary Integumentary: Present: clear, warm, dry - Neurologic Neurologic: CNII-XII intact, moves all extremities Results - Labs CBC & Chem 7: 05/04/20 07:28 05/04/20 07:28 Labs: Laboratory Last Values WBC 8.7 K/mm3 (4.5-11.0) 05/04/20 07: RBC 4.00 M/mm3 (3.65-5.03) 05/04/20 07: Hgb 11.4 gm/dl (10.1-14.3) 05/04/20 07: Hct 34.9 % (30.3-42.9) 05/04/20: MCV 87 fl (79-97) 05/04/20: MCH 29 pg (28-32) 05/04/20 07: MCHC 33 % (30-34) 05/04/20 07: RDW 14.4 % (13.2-15.2) 05/04/20: Plt Count 213 K/mm3 (140-440) 05/04/20 07: Lymph % (Auto) 25.9 % (13.4-35.0) 05/04/20: [place] % (Auto) 6.1 % (0.0-7.3) 05/04/20 07: Eos % (Auto) 1.3 % (0.0-4.3) 05/04/20 07: Baso % (Auto) 0.8 % (0.0-1.8) 05/04/20 07: Lymph # 2.2 K/mm3 (1.2-5.4) 05/04/20 07: [place] # 0.5 K/mm3 (0.0-0.8) 05/04/20 07: Eos # 0.1 K/mm3 (0.0-0.4) 05/04/20 07: Baso # 0.1 K/mm3 (0.0-0.1) 05/04/20 07: Seg Neutrophils % 65.9 % (40.0-70.0) 05/04/20 07: Seg Neutrophils # 5.7 K/mm3 (1.8-7.7) 05/04/20 07: Sodium 141 mmol/L (137-145) 05/04/20 07: Potassium 3.5 mmol/L (3.6-5.0) L 05/04/20 07: Chloride 101.9 mmol/L (98-107) 05/04/20 07:28 Carbon Dioxide 25 mmol/L (22-30) 05/04/20 07:28 Anion Gap 18 mmol/L 05/04/20 07:28 BUN 7 mg/dL (7-17) 05/04/20 07:28 Creatinine 0.7 mg/dL (0.6-1.2) 05/04/20 07:28 Estimated GFR > 60 ml/min 05/04/20 07:28 BUN/Creatinine Ratio 10 % 05/04/20 07:28 Glucose 86 mg/dL (65-100) 05/04/20 07:28 Calcium 9.0 mg/dL (8.4-10.2) 05/04/20 07:28 Total Bilirubin 0.50 mg/dL (0.1-1.2) 05/01/20 02:41 AST 22 units/L (5-40) 05/01/20 02:41 ALT 11 units/L (7-56) 05/01/20 02:41 Alkaline Phosphatase 82 units/L (35-129) 05/01/20 02:41 Total Protein 8.6 g/dL (6.3-8.2) H 05/01/20 02:41 Albumin 4.7 g/dL (3.9-5) 05/01/20 02:41 Albumin/Globulin Ratio 1.2 % 05/01/20 02:41 HCG, Qual Negative (Negative) 05/01/20 02:41 Urine Color Yellow (Yellow) 05/01/20 Unknown Urine Turbidity Slightly-cloudy (Clear) 05/01/20 Unknown Urine pH 6.0 (5.0-7.0) 05/01/20 Unknown Ur Specific [place] 1.033 (1.003-1.030) H 05/01/20 Unknown Urine Protein 100 mg/dl mg/dL (Negative) 05/01/20 Unknown Urine Glucose (UA) Neg mg/dL (Negative) 05/01/20 Unknown Urine Ketones 80 mg/dL (Negative) 05/01/20 Unknown Urine Blood Sm (Negative) 05/01/20 Unknown Urine Nitrite Neg (Negative) 05/01/20 Unknown Urine Bilirubin Neg (Negative) 05/01/20 Unknown Urine Urobilinogen < 2.0 mg/dL (<2.0) 05/01/20 Unknown Ur Leukocyte Esterase Sm (Negative) 05/01/20 Unknown Urine WBC (Auto) 14.0 /HPF (0.0-6.0) H 05/01/20 Unknown Urine RBC (Auto) 52.0 /HPF (0.0-6.0) 05/01/20 Unknown U Epithel Cells (Auto) 31.0 /HPF (0-13.0) H 05/01/20 Unknown Urine Mucus 3+ /HPF 05/01/20 Unknown Microbiology: Microbiology 05/01/20 Unknown Urine,Clean Catch Urine Culture - Final Ybarra/IV: Voiding Method Toilet IV Catheter Type [Left Upper Peripheral IV arm] IV Catheter Type [Right INT / Saline Lock Forearm] Active Medications - Current Medications Current Medications: Generic Name Dose Route Start Last Admin Trade Name Freq PRN Reason Stop Dose Admin Hydralazine HCl 20 mg 05/01/20 12:39 Apresoline IV Q4HR PRN Blood Pressure Hydromorphone HCl 1 mg 05/01/20 12:39 05/04/20 07:02 Dilaudid IV 1 mg Q3H PRN Administration Pain , Severe (7-10) Piperacillin Sod/Tazobactam Sod 4.5 gm in 100 mls @ 200 mls/hr 05/01/20 12:39 05/04/20 06:16 Zosyn/Ns 4.5gm/100ml IV 200 mls/hr Q8HR HEIDI Administration Protocol Potassium Chloride/Dextrose/Sod Cl 20 meq in 1,000 mls @ 75 mls/hr 05/02/20 13:00 05/03/20 22:12 D5w/0.45% Nacl/Kcl 20 Meq IV 75 mls/hr DIRECT HEIDI Administration Ondansetron HCl 4 mg 05/01/20 12:40 05/02/20 18:51 Zofran IV 4 mg Q8H PRN Administration Nausea And Vomiting Pantoprazole Sodium 40 mg 05/01/20 11:00 05/03/20 21:59 Protonix IV 40 mg BID HEIDI Administration Phenol 1 spray 05/01/20 15:08 Chloraseptic MM PRN PRN Sore Throat
--- NOTE | 2020-05-04 10:39 | Fluoroscopy Report ---
UPPER GI HISTORY: hx perf duodenal ulcer, follow up. TECHNIQUE: Single contrast Gastrografin technique utilized to evaluate the stomach and duodenal C-lo op FINDINGS: A targeted examination was performed to evaluate for duodenal ulcer as suggested on recent CT. Approximately 360 cc of Gastrografin was injected via the nasogastric tube. There is normal filli ng of the stomach, duodenal bulb and duodenal sweep. No extravasation of Gastrografin contrast agent was witnessed from the duodenal bulb region. There is normal mucosal pattern throughout the duodenum. IMPRESSION: No extravasation of contrast was witnessed. See above. Fluoroscopic time: 4.9 minutes Number of fluoroscopic images: 22 Signer Name: Randall Smith Jr, MD Signed: 05/04/2020 10:34 AM Workstation Name: [id number]
[2020-05-04] MEDS: PANTOPRAZOLE 40 MG INJ IV SCH ×2 (11:02→22:32)
--- NOTE | 2020-05-04 13:53 | Progress Note ---
Assessment and Plan 39-year-old female with acute onset abdominal pain, likely duodenal ulcer with contained perforation Upper GI -negative for extravasation of contrast Plan: 1. DC NGT 2. star clear liquid diet 3. Continue PPI twice daily -> transition to oral upon dc 4. continue abx - transition to oral levaquin/flayl x 7 days upon dc 5. prn pain control 6. If patient tolerates clear liquid diet, she may be discharged home. I discussed advancing diet very slowly over the next week to a full liquid and then a soft diet. The patient understands. 7. Commend outpatient follow-up with gastroenterology in 6 to 8 weeks for EGD. The patient has insurance through [employer]. 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 Discussed with Dr. Mckenzie. [place]long call with any questions or concerns. Subjective Date of service: 05/04/20 Narrative: Patient seen and examined. Complaints of intermittent mild crampy abdominal pain. No nausea or vomiting. No fevers or chills. Objective Vital Signs - 12hr 05/04/20 05/04/20 05/04/20 03:34 03:56 07:02 Temperature 97.8 F Pulse Rate 63 Respiratory 17 18 18 Rate Blood Pressure 145/95 O2 Sat by Pulse 95 Oximetry 05/04/20 07:23 Temperature 98.2 F Pulse Rate 71 Respiratory 18 Rate Blood Pressure 118/87 O2 Sat by Pulse 94 Oximetry - General physical appearance Narrative Exam: Gen.: Awake, alert, oriented 3. No apparent distress ENT: NGT in place, clamped. Trachea midline. No lymphadenopathy. No scleral icterus or conjunctival pallor CV: S1, S2 present Respiratory: No audible wheezes Abdomen: Soft, nondistended, mild discomfort on palpation near the umbilicus. No rebound, rigidity, guarding Extremities: No clubbing, cyanosis, edema - Labs 05/04/20 07:28 05/04/20 07:28 Diabetes panel 05/04/20 Range/Units 07:28 Sodium 141 (137-145) mmol/L Potassium 3.5 L (3.6-5.0) mmol/L Chloride 101.9 (98-107) mmol/L Carbon Dioxide 25 (22-30) mmol/L BUN 7 (7-17) mg/dL Creatinine 0.7 (0.6-1.2) mg/dL Glucose 86 (65-100) mg/dL Calcium 9.0 (8.4-10.2) mg/dL Calcium panel 05/04/20 Range/Units 07:28 Calcium 9.0 (8.4-10.2) mg/dL Pituitary panel 05/04/20 Range/Units 07:28 Sodium 141 (137-145) mmol/L Potassium 3.5 L (3.6-5.0) mmol/L Chloride 101.9 (98-107) mmol/L Carbon Dioxide 25 (22-30) mmol/L BUN 7 (7-17) mg/dL Creatinine 0.7 (0.6-1.2) mg/dL Glucose 86 (65-100) mg/dL Calcium 9.0 (8.4-10.2) mg/dL Adrenal panel 05/04/20 Range/Units 07:28 Sodium 141 (137-145) mmol/L Potassium 3.5 L (3.6-5.0) mmol/L Chloride 101.9 (98-107) mmol/L Carbon Dioxide 25 (22-30) mmol/L BUN 7 (7-17) mg/dL Creatinine 0.7 (0.6-1.2) mg/dL Glucose 86 (65-100) mg/dL Calcium 9.0 (8.4-10.2) mg/dL
[2020-05-05] MEDS: D5W/0.45% NACL/KCL 20 MEQ 20 MEQ/1,000 ML BAG IV SCH (03:28)
[2020-05-05] MEDS: HYDROmorphone 1 MG/1 ML INJ IV PRN ×3 (03:28→10:13)
[2020-05-05] MEDS: PIPERACIL/TAZOBACTA 4.5/NS 100 4.5 GM/100 ML VIAL IV SCH (06:17)
[2020-05-05 08:57] VITALS: BP 123/86
--- NOTE | 2020-05-05 09:53 | Discharge Summary ---
Providers - Providers Date of Admission: 05/01/20 05:28 Date of discharge: 05/05/20 Attending physician: HARVINDER NGUYEN 05/01/20 05:50 Consult to Physician [CONS] Routine Comment: Consulting Provider: LYNDA LEWIS Physician Instructions: Reason For Exam: SBO Primary care physician: CHART CALCULATOR Hospitalization Condition: Stable Disposition: DC-01 TO HOME OR SELFCARE Time spent for discharge: 33 min Core Measure Documentation - Palliative Care Palliative Care/ Comfort Measures: Not Applicable - Core Measures Any of the following diagnoses?: none Exam - Constitutional Vitals: Temp Pulse Resp BP Pulse Ox 98.4 F 62 18 123/86 93 05/05/20 07:49 05/05/20 07:49 05/05/20 07:49 05/05/20 07:49 05/05/20 07:49 General appearance: Present: no acute distress, well-nourished, obese Plan Activity: advance as tolerated Diet: other (Full liquids, advance as tolerated) Additional Instructions: Advised to follow GI in 2 weeks. Full liquid diet advance as tolerated. If you have worsening symptoms contact MD or go to emergency room Follow up with: PRIMARY CARE, [Primary Care Provider] - 3-5 Days MIN,GRAHAM PATTERSON MD [Staff Physician] - 14 Days Prescriptions: metroNIDAZOLE [Flagyl] 500 mg PO Q8HR #21 tablet levoFLOXacin [Levaquin] 750 mg PO QDAY #7 tablet oxyCODONE /ACETAMINOPHEN [Percocet 5/325] 1 tab PO BID #14 tablet Pantoprazole [Protonix] 40 mg PO BID #60 tablet
== END 2020-05-05 14:00 | disposition home or self-care (01) | DRG 388 ==
LOC: ED 02:18 → 4A 05:28 → OBSVTOIN 05:28
PROVIDERS: ADMIT Internal Medicine Geriatric Medicine; ATTEND Internal Medicine
DX: K56.609 Unspecified intestinal obstruction, unspecified as to partial versus complete obstruction (principal); K26.1 Acute duodenal ulcer with perforation; N30.01 Acute cystitis with hematuria; Z68.41 Body mass index [BMI] 40.0-44.9, adult; J45.909 Unspecified asthma, uncomplicated; E66.9 Obesity, unspecified; Z87.891 Personal history of nicotine dependence; Z90.49 Acquired absence of other specified parts of digestive tract
CPT/HCPCS: 36415; 74018; 74022; 74176; 74177; 74246; 80048; 80053; 81001; 84703; 85025; 87086; 96365; 96375; G0378; C9113; J0692; J1170; J2405; J2543; J3480; J7030; J7042; Q9967